=== PATIENT | female | born 1970 | race Two or more races ===

== ENCOUNTER 2020-02-13 12:11 | Emergency (ER) | payer MEDICAID ==
[~2020-02-13] VITALS: Ht 157.5 cm; Wt 120.0 kg
--- NOTE | 2020-02-13 12:35 | NUR ---
PATIENT ARRIVES WITH RIGHT EYE PAIN THAT SHE RATES A 5, IT APPEARS BROKEN CAPILLARIES INSIDE RIGHT EYE, NO VISION AFFECTED AND THIS HAS HAPPENED TO HER ONE WEEK AGO. STATES DRY COUGH THE CAUSE, NO COUGH NOTED.
--- NOTE | 2020-02-13 13:47 | NUR ---
PATIENT AWAITING CHEST XRAY. IN BED. RAILS UP. HELPED HER GET TO BATHROOM, PATIENT WALKS WELL, STRONG.
[2020-02-13 14:25] VITALS: BP 158/88
== END 2020-02-13 14:33 | disposition home or self-care (01) ==
LOC: ED 13:30
DX: J30.89 Other allergic rhinitis (principal)
CPT/HCPCS: 71045; 90471; 99283